=== PATIENT | female | born 1960 | race African-American/Black ===

== ENCOUNTER 2016-10-03 18:12 | Emergency (ER) | payer MEDICAID ==
[~2016-10-03] VITALS: Ht 172.7 cm; Wt 64.0 kg
[~2016-10-03 18:12] MED LIST: ALBUTEROL
[2016-10-03] MEDS ORDERED: IPRATROPIUM BROMIDE (0.02%) 0.5MG/2.5ML NEB HHN STA (18:32)
[2016-10-03] MEDS ORDERED: METHYLPREDNISOLONE SOD SUCC 125 MG/2 ML VIAL IV STA (18:32)
[2016-10-03] MEDS ORDERED: ALBUTEROL (0.083%) 2.5MG/3ML NEB HHN SCH (19:00)
[2016-10-03 19:34] LABS: BASOPHILS % 1.4 % (0.0-2.0); EOSINOPHILS % 7.5 % (0.0-5.0); HEMATOCRIT. 43.7 % (36.0-48.0); HEMOGLOBIN. 14.6 g/dL (12.0-16.0); LYMPHOCYTES % 35.3 % (20.0-50.0); MEAN CORPUSCULAR HEMOGLOBIN 30.4 pg (28.0-32.0); MEAN CORPUSCULAR HGB CONC 33.5 g/dL (31.0-37.0); MEAN CORPUSCULAR VOLUME 90.6 fL (81.0-99.0); MEAN PLATELET VOLUME 8.7 fl (7.4-10.4); MONOCYTES % 10.7 % (2.0-8.0); NEUTROPHILS % 45.1 % (40.0-76.0); PLATELET 196 x1000/uL (130-400); RED BLOOD CELL COUNT 4.82 mill/uL (4.2-5.4); RED CELL DISTRIBUTION WIDTH 13.4 % (11.6-14.6); WHITE BLOOD COUNT 7.5 x1000/uL (4.5-11.0)
[2016-10-03 19:37] LABS: CHLORIDE 110 mEq/L (98-107); INDEX HEMOLYSI 2 (1-3); INDEX ICTERIC 1 (1-4); INDEX LIPEMIC 1 (1-3)
[2016-10-03 19:39] LABS: INR 1.1; PROTHROMBIN TIME 10.9 sec
[2016-10-03 19:44] LABS: ALANINE AMINOTRANSFERASE 23 IU/L (13-61); ALBUMIN 3.5 g/dL (3.4-5.0); ANION GAP 10; CALCIUM 8.9 mg/dL (8.5-10.1); CARBON DIOXIDE 26 mEq/L (21-32); UREA NITROGEN BLOOD 13 mg/dL (7-21); eGFR > 60 mL/min (>60)
[2016-10-03 20:53] VITALS: BP 117/76
== END 2016-10-03 20:54 | disposition home or self-care (01) ==
LOC: ER 19:38
DX: J44.1 Chronic obstructive pulmonary disease with (acute) exacerbation (principal); F17.210 Nicotine dependence, cigarettes, uncomplicated; Z79.899 Other long term (current) drug therapy
CPT/HCPCS: 36415; 71010; 80053; 85025; 85610; 93005; 94640; 96374; 99285; 99406; J2930; J7611; Z7610

== ENCOUNTER 2017-01-08 10:36 | Emergency (ER) | payer MEDICAID ==
[~2017-01-08] VITALS: Ht 172.7 cm; Wt 71.0 kg
[2017-01-08] MEDS ORDERED: KETOROLAC 60MG/2ML VIAL IM ONE (12:00)
[2017-01-08] MEDS ORDERED: ALBUTEROL (0.083%) 2.5MG/3ML NEB HHN STA (12:00)
[2017-01-08] MEDS ORDERED: PREDNISONE 20MG TABLET PO STA (12:00)
[2017-01-08] MEDS ORDERED: IPRATROPIUM BROMIDE (0.02%) 0.5MG/2.5ML NEB HHN STA (12:00)
[2017-01-08] MEDS: IBUPROFEN 600MG TABLET PO ONE ×2 (12:45→12:47)
[2017-01-08 13:11] VITALS: BP 128/74
== END 2017-01-08 13:44 | disposition home or self-care (01) ==
LOC: ER 10:37
DX: J44.1 Chronic obstructive pulmonary disease with (acute) exacerbation (principal); J06.9 Acute upper respiratory infection, unspecified; Z87.891 Personal history of nicotine dependence
CPT/HCPCS: 71010; 94640; 99284; J7512; J7611

== ENCOUNTER 2017-10-16 15:36 | Emergency (ER) | payer MEDICAID ==
[~2017-10-16] VITALS: Ht 172.7 cm; Wt 68.0 kg
[2017-10-16] MEDS ORDERED: IPRATROPIUM BROMIDE (0.02%) 0.5MG/2.5ML NEB HHN STA (16:47)
[2017-10-16] MEDS ORDERED: ALBUTEROL (0.083%) 2.5MG/3ML NEB HHN STA (16:47)
[2017-10-16 18:53] VITALS: BP 138/88
== END 2017-10-16 18:55 | disposition home or self-care (01) ==
LOC: ER 17:12
DX: J44.9 Chronic obstructive pulmonary disease, unspecified (principal); M19.90 Unspecified osteoarthritis, unspecified site; Z87.891 Personal history of nicotine dependence
CPT/HCPCS: 94644; 99285; J7611

== ENCOUNTER 2018-01-09 06:37 | Emergency (ER) | payer MEDICAID ==
[~2018-01-09] VITALS: Ht 172.7 cm; Wt 64.0 kg
[2018-01-09] MEDS ORDERED: IPRATROPIUM BROMIDE (0.02%) 0.5MG/2.5ML NEB HHN STA (07:40)
[2018-01-09] MEDS ORDERED: ALBUTEROL (0.083%) 2.5MG/3ML NEB HHN STA (07:40)
[2018-01-09] MEDS ORDERED: METHYLPREDNISOLONE SOD SUCC 125 MG/2 ML VIAL IV STA (07:40)
[2018-01-09 08:54] LABS: BASOPHILS % 1.1 % (0.0-2.0); EOSINOPHILS % 5.7 % (0.0-5.0); HEMATOCRIT. 45.6 % (36.0-48.0); HEMOGLOBIN. 15.4 g/dL (12.0-16.0); MEAN CORPUSCULAR HEMOGLOBIN 30.6 pg (28.0-32.0); MEAN CORPUSCULAR VOLUME 90.4 fL (81.0-99.0); MEAN PLATELET VOLUME 8.7 fl (7.4-10.4); MONOCYTES % 8.7 % (2.0-8.0); NEUTROPHILS % 56.5 % (40.0-76.0); PLATELET 246 x1000/uL (130-400); RED BLOOD CELL COUNT 5.04 mill/uL (4.2-5.4); RED CELL DISTRIBUTION WIDTH 13.4 % (11.6-14.6)
[2018-01-09 09:00] LABS: CHLORIDE 106 mEq/L (98-107); PROTHROMBIN TIME 10.7 sec (9.4-11.6)
[2018-01-09 12:07] VITALS: BP 129/89
[2018-01-09] MEDS ORDERED: DOCUSATE SODIUM 100MG CAPSULE PO PRN (12:45)
[2018-01-09] MEDS ORDERED: ONDANSETRON HCL 4MG/2ML VIAL IV PRN (12:45)
[2018-01-09] MEDS ORDERED: IPRATROPIUM/ALBUTEROL 0.5-3(2.5)MG/3ML NEB INH PRN (12:45)
[2018-01-09] MEDS ORDERED: LEVOFLOXACIN 500MG PREMIX 100 ML IV SCH (12:45)
[2018-01-09] MEDS ORDERED: IPRATROPIUM/ALBUTEROL 0.5-3(2.5)MG/3ML NEB INH SCH (12:45)
[2018-01-09] MEDS ORDERED: ACETAMINOPHEN 325MG TABLET PO PRN (12:45)
[2018-01-09] MEDS ORDERED: GUAIFENESIN 200MG/10ML SUGAR FREE UDC PO PRN (12:45)
[2018-01-09] MEDS ORDERED: MAGNESIUM/ALUMINUM HYDROXIDE/SIMETHICONE 30ML UDC PO PRN (12:45)
[2018-01-09] MEDS ORDERED: CLONIDINE 0.1MG TABLET PO PRN (12:45)
[2018-01-09] MEDS ORDERED: AZITHROMYCIN 500 MG in DEXT 5% WATER 250 ML IV SCH (12:45)
[2018-01-09] MEDS ORDERED: HYDROCODONE/ACETAMINOPHEN 5/325MG TABLET PO PRN (12:45)
[2018-01-09] MEDS ORDERED: METHYLPREDNISOLONE SOD SUCC 125 MG/2 ML VIAL IV SCH (12:45)
== END 2018-01-09 12:44 | disposition left against medical advice (07) ==
LOC: ER 08:32 → ENRESERV 12:35 → CANRESERV 12:35 → CANBEDREQ 12:37 → ER 12:44
DX: J44.1 Chronic obstructive pulmonary disease with (acute) exacerbation (principal); R94.31 Abnormal electrocardiogram [ECG] [EKG]; Z87.891 Personal history of nicotine dependence
CPT/HCPCS: 36415; 71045; 80053; 83605; 83690; 83880; 84484; 85025; 85610; 87040; 93005; 94644; 96374; 99285; J2930; J7611; Z7610

== ENCOUNTER 2018-04-04 10:26 | Emergency (ER) | payer MEDICAID ==
[~2018-04-04] VITALS: Ht 167.6 cm; Wt 82.0 kg
[~2018-04-04 10:26] MED LIST changes: +HYDR-4009 MT; +MORP30TA66 PO
[2018-04-04] MEDS ORDERED: METHYLPREDNISOLONE SOD SUCC 125 MG/2 ML VIAL IV STA (11:43)
[2018-04-04] MEDS ORDERED: IPRATROPIUM BROMIDE (0.02%) 0.5MG/2.5ML NEB HHN STA (11:43)
[2018-04-04] MEDS ORDERED: ALBUTEROL (0.083%) 2.5MG/3ML NEB HHN STA (11:43)
[2018-04-04 12:40] LABS: BASOPHILS % 0.9 % (0.0-2.0); EOSINOPHILS % 4.2 % (0.0-5.0); HEMATOCRIT. 44.1 % (36.0-48.0); LYMPHOCYTES % 21.9 % (20.0-50.0); MEAN CORPUSCULAR HEMOGLOBIN 30.9 pg (28.0-32.0); MEAN CORPUSCULAR VOLUME 90.6 fL (81.0-99.0); MEAN PLATELET VOLUME 8.7 fl (7.4-10.4); MONOCYTES % 8.6 % (2.0-8.0); NEUTROPHILS % 64.4 % (40.0-76.0); PLATELET 251 x1000/uL (130-400); RED BLOOD CELL COUNT 4.87 mill/uL (4.2-5.4); RED CELL DISTRIBUTION WIDTH 13.3 % (11.6-14.6)
[2018-04-04 12:41] VITALS: BP 145/91
[2018-04-04 12:45] LABS: CHLORIDE 105 mEq/L (98-107)
[2018-04-04 12:50] LABS: PROTHROMBIN TIME 10.3 sec (9.1-11.1)
== END 2018-04-04 13:30 | disposition home or self-care (01) ==
LOC: ER 10:26
DX: J44.1 Chronic obstructive pulmonary disease with (acute) exacerbation (principal); R03.0 Elevated blood-pressure reading, without diagnosis of hypertension; Z87.891 Personal history of nicotine dependence
CPT/HCPCS: 36415; 80053; 83880; 84484; 85025; 85610; 94640; 96374; 99284; J2930; J7611; Z7610

== ENCOUNTER 2018-08-04 07:05 | Inpatient (IN) | payer MEDICAID ==
[~2018-08-04] VITALS: Ht 172.7 cm; Wt 77.1 kg
[2018-08-04] MEDS ORDERED: KETOROLAC 30MG/ML VIAL IV STA (08:29)
[2018-08-04] MEDS ORDERED: SODIUM CHLORIDE 0.9% 1,000 ML IV ONE ×2 (08:29→14:00)
[2018-08-04] MEDS ORDERED: MORPHINE SULFATE 4 MG/ML CPJ (NOT FOR IM USE) IV ONE (08:30)
[2018-08-04] MEDS ORDERED: ONDANSETRON HCL 4MG/2ML INJ IV ONE (08:30)
[2018-08-04] MEDS ORDERED: TETRACAINE 0.5% OPHTH DROPS 4ML BOTHEYE ONE (08:45)
[2018-08-04 09:34] LABS: BASOPHILS % 0.9 % (0.0-2.0); EOSINOPHILS % 0.4 % (0.0-5.0); HEMOGLOBIN. 15.7 g/dL (12.0-16.0); LYMPHOCYTES % 15.3 % (20.0-50.0); MEAN CORPUSCULAR HEMOGLOBIN 30.4 pg (28.0-32.0); MEAN CORPUSCULAR VOLUME 89.3 fL (81.0-99.0); MEAN PLATELET VOLUME 8.7 fl (7.4-10.4); MONOCYTES % 5.5 % (2.0-8.0); NEUTROPHILS % 77.9 % (40.0-76.0); PLATELET 297 x1000/uL (130-400); RED BLOOD CELL COUNT 5.15 mill/uL (4.2-5.4); RED CELL DISTRIBUTION WIDTH 13.1 % (11.6-14.6)
[2018-08-04 09:37] LABS: CHLORIDE 104 mEq/L (98-107)
[2018-08-04 09:44] LABS: INR 1.1; PROTHROMBIN TIME 10.6 sec (9.1-11.1)
[2018-08-04] MEDS ORDERED: TIMOLOL MALEATE 0.5% OPHTH DROPS 5ML RIGHTEYE SCH (10:15)
[2018-08-04] MEDS ORDERED: ACETAZOLAMIDE SODIUM 500MG/VIAL IV ONE (10:15)
[2018-08-04] MEDS ORDERED: PILOCARPINE HCL 2% OPHTH DROPS 15ML RIGHTEYE ONE (10:15)
[2018-08-04] MEDS ORDERED: NA PHOS,M-B/NA PHOS,DI-BA ENEMA 118ML PR PRN (10:30)
[2018-08-04] MEDS ORDERED: ACETAMINOPHEN 325MG TABLET PO PRN (10:30)
[2018-08-04] MEDS ORDERED: HYDROCODONE/ACETAMINOPHEN 5/325MG TABLET PO PRN (10:30)
[2018-08-04] MEDS ORDERED: LORAZEPAM 2MG/ML CPJ IV PRN (10:30)
[2018-08-04] MEDS ORDERED: ONDANSETRON HCL 4MG/2ML INJ IV PRN ×2 (10:30→18:15)
[2018-08-04] MEDS ORDERED: DIPHENHYDRAMINE 50MG/ML VIAL IV PRN (10:30)
[2018-08-04] MEDS ORDERED: GUAIFENESIN 200MG/10ML SUGAR FREE UDC PO PRN (10:30)
[2018-08-04] MEDS ORDERED: DOCUSATE SODIUM 100MG CAPSULE PO PRN (10:30)
[2018-08-04] MEDS ORDERED: MAGNESIUM/ALUMINUM HYDROXIDE/SIMETHICONE 30ML UDC PO PRN (10:30)
[2018-08-04] MEDS ORDERED: CLONIDINE 0.1MG TABLET PO PRN (10:30)
[2018-08-04] MEDS ORDERED: IPRATROPIUM/ALBUTEROL 0.5-3(2.5)MG/3ML NEB INH PRN (10:30)
[2018-08-04] MEDS ORDERED: LIDOCAINE HCL/PF 2% 20 MG/ML 10ML VIAL ONE (15:39)
[2018-08-04] MEDS ORDERED: ACETYLCHOLINE CHLORIDE INTRAOCULAR SOLUTION 1:100 ELECTROLYTE DILUENT IO ONE (15:39)
[2018-08-04] MEDS ORDERED: BUPIVACAINE HCL/PF 0.75% (7.5MG/ML) 10ML ONE (15:39)
[2018-08-04] MEDS ORDERED: BALANCED SALT IRRIG SOLN 15ML ONE (15:39)
[2018-08-04] MEDS ORDERED: LIDOCAINE HCL 2%/EPINEPHRINE 1:100,000 20 ML VIAL INFIL ONE (15:39)
[2018-08-04] MEDS ORDERED: PREDNISOLONE ACETATE 1% OPHTH DROPS 1ML ONE (15:39)
[2018-08-04] MEDS ORDERED: NEO/POLYMYX B SULF/DEXAMETH OPHTH OINT 3.5GM ONE (15:39)
[2018-08-04] MEDS ORDERED: ONDANSETRON HCL 4MG/2ML INJ IM NR (15:45)
[2018-08-04] MEDS ORDERED: ALBUTEROL (0.083%) 2.5MG/3ML NEB ONE (15:51)
[2018-08-04] MEDS ORDERED: MITOMYCIN 0.2 MG KIT OP NR (16:00)
[2018-08-04] MEDS ORDERED: ACETAZOLAMIDE SODIUM 500MG/VIAL IV NR (16:30)
[2018-08-04] MEDS ORDERED: PROPOFOL 200MG/20ML VIAL IV ONE (16:34)
[2018-08-04] MEDS ORDERED: SODIUM CHLORIDE 0.9% 10ML VIAL ONE (16:34)
[2018-08-04] MEDS ORDERED: LIDOCAINE HCL 1% 20ML VIAL (Pyxis) INJ ONE (16:34)
[2018-08-04] MEDS ORDERED: CEFAZOLIN SODIUM 1000MG/VIAL ONE (16:34)
[2018-08-04] MEDS ORDERED: DIPHENHYDRAMINE 50MG/ML VIAL ONE (16:34)
[2018-08-04] MEDS ORDERED: MIDAZOLAM HCL 2 MG/2 ML VIAL ONE (16:34)
[2018-08-04] MEDS ORDERED: FENTANYL CITRATE/PF 50MCG/ML 2ML VIAL ONE (16:34)
[2018-08-04] MEDS ORDERED: TRIAMCINOLONE ACETONIDE 40MG/ML 1ML VIAL ONE (16:53)
[2018-08-04] MEDS ORDERED: HYDROMORPHONE HCL/PF 2MG/ML CPJ IV PRN (18:00)
[2018-08-04 20:00] VITALS: BP 115/73
[2018-08-05] VITALS: BP 106/73
[2018-08-05 04:00] VITALS: BP 109/68
[2018-08-05 05:42] VITALS: BP 115/73
[2018-08-05 06:51] LABS: BASOPHILS % 0.7 % (0.0-2.0); EOSINOPHILS % 0.4 % (0.0-5.0); HEMATOCRIT. 42.8 % (36.0-48.0); HEMOGLOBIN. 14.2 g/dL (12.0-16.0); LYMPHOCYTES % 23.2 % (20.0-50.0); MEAN CORPUSCULAR HEMOGLOBIN 30.2 pg (28.0-32.0); MEAN CORPUSCULAR VOLUME 90.7 fL (81.0-99.0); MEAN PLATELET VOLUME 8.7 fl (7.4-10.4); MONOCYTES % 8.8 % (2.0-8.0); NEUTROPHILS % 66.9 % (40.0-76.0); PLATELET 258 x1000/uL (130-400); RED BLOOD CELL COUNT 4.72 mill/uL (4.2-5.4); RED CELL DISTRIBUTION WIDTH 13.1 % (11.6-14.6)
[2018-08-05 07:19] LABS: CHLORIDE 113 mEq/L (98-107)
[2018-08-05 07:31] LABS: LDL CHOLESTEROL 101 mg/dL (5-100)
[2018-08-05 07:32] LABS: HDL CHOLESTEROL 58 mg/dL (40-59)
[2018-08-05] MEDS: PREDNISOLONE ACETATE 1% OPHTH DROPS 1ML RIGHTEYE SCH ×2 (09:22→13:00)
[2018-08-05 12:00] VITALS: BP 132/82
[2018-08-05] MEDS ORDERED: CIPROFLOXACIN 0.3% OPHTH SOLN 2.5ML RIGHTEYE ONE (13:00)
[2018-08-05] MEDS ORDERED: ACETAMINOPHEN 325MG TABLET PO SCH (13:30)
[2018-08-05 15:52] VITALS: BP 115/76
[2018-08-05 16:00] VITALS: BP 112/75
== END 2018-08-05 17:30 | disposition home or self-care (01) | DRG 73 ==
LOC: ER 07:15 → 6EST 10:19 → ENRESERV 14:47
PROVIDERS: ADMIT Internal Medicine; ATTEND Internal Medicine
PROC: 08123Z4 Bypass Right Anterior Chamber to Sclera, Percutaneous Approach (ICD-10-PCS; principal; 2018-08-04)
PROC: 08BC3ZZ Excision of Right Iris, Percutaneous Approach (ICD-10-PCS; 2018-08-04)
PROC: 08N Eye, Release (ICD-10-PCS; 2018-08-04)
DX: H40.211 Acute angle-closure glaucoma, right eye (principal); H21.01 Hyphema, right eye; H40.51X0 Glaucoma secondary to other eye disorders, right eye, stage unspecified; H21.541 Posterior synechiae (iris), right eye; H25.10 Age-related nuclear cataract, unspecified eye; I10 Essential (primary) hypertension; J44.9 Chronic obstructive pulmonary disease, unspecified; M19.90 Unspecified osteoarthritis, unspecified site; Z79.899 Other long term (current) drug therapy; Z98.891 History of uterine scar from previous surgery; Z91.19 Patient's noncompliance with other medical treatment and regimen
CPT/HCPCS: 36415; 80061; 84439; 84443; 96361; 96374; 96375; 99285; J0690; J1120; J1200; J1885; J2250; J2270; J2405; J2704; J3010; J3301; J3490; J7030; J7611; J7620; J9280

== ENCOUNTER 2021-10-21 21:14 | Emergency (ER) | payer MEDICAID ==
[~2021-10-21] VITALS: Ht 172.7 cm; Wt 79.0 kg
[2021-10-21] MEDS ORDERED: ALBUTEROL (0.083%) 2.5MG/3ML NEB HHN ONE (22:30)
[2021-10-21] MEDS ORDERED: IPRATROPIUM BROMIDE (0.02%) 0.5MG/2.5ML NEB HHN ONE (22:30)
[2021-10-21] MEDS ORDERED: PREDNISONE 20MG TABLET PO ONE (22:30)
[2021-10-21 22:50] LABS: BASOPHILS % 0.7 % (0.0-2.0); EOSINOPHILS % 0.8 % (0.0-5.0); HEMATOCRIT. 43.6 % (36.0-48.0); LYMPHOCYTES % 18.9 % (20.0-50.0); MEAN CORPUSCULAR HEMOGLOBIN 30.8 pg (28.0-32.0); MEAN CORPUSCULAR VOLUME 89.7 fL (81.0-99.0); MEAN PLATELET VOLUME 8.4 fl (7.4-10.4); MONOCYTES % 8.3 % (2.0-8.0); NEUTROPHILS % 71.3 % (40.0-76.0); PLATELET 354 x1000/uL (130-400); RED BLOOD CELL COUNT 4.86 mill/uL (4.2-5.4)
[2021-10-21 23:01] LABS: CHLORIDE 108 mEq/L (98-107)
[2021-10-21 23:30] VITALS: BP 132/78
[2021-10-21] MEDS ORDERED: P50 MT (23:47)
== END 2021-10-21 23:58 | disposition home or self-care (01) ==
LOC: ER 21:14
DX: J44.1 Chronic obstructive pulmonary disease with (acute) exacerbation (principal); Z98.890 Other specified postprocedural states
CPT/HCPCS: 36415; 71045; 80053; 83880; 84484; 85025; 93005; 94640; 99285; J7512; Z7610